=== PATIENT | female | born 1995 | race Caucasian/White ===

== ENCOUNTER 2020-10-16 06:43 | Emergency (ER) | payer OTHER ==
[~2020-10-16] VITALS: Ht 157.5 cm; Wt 59.0 kg
[~2020-10-16 06:43] MED LIST: ACETAMINOPHEN-1 EAC1 PO; AUGMENTIN 500-1 EACH PO; BUSPIRONE HCL7.5 MG; DEPAKOTE250 MG; HYDROCODONE-AP1 EAC6 PO; HYDROXYZINE HCL10 M1; QUETIAPINE FUM300 MG; REMERON15 M1
[2020-10-16 07:25] VITALS: BP 174/88
== END 2020-10-16 07:26 | disposition home or self-care (01) ==
LOC: M.ERS 06:43
DX: S09.90XA Unspecified injury of head, initial encounter (principal); I10 Essential (primary) hypertension; F17.210 Nicotine dependence, cigarettes, uncomplicated; Y04.2XXA Assault by strike against or bumped into by another person, initial encounter; Y93.89 Activity, other specified; Y92.89 Other specified places as the place of occurrence of the external cause; Y99.8 Other external cause status